=== PATIENT | female | born 1965 | race Caucasian/White ===

== ENCOUNTER 2018-06-09 12:47 | Emergency (ER) | payer MEDICAID ==
[~2018-06-09] VITALS: Ht 175.3 cm; Wt 119.0 kg
[2018-06-09 12:49] VITALS: BP 121/62
[2018-06-09] MEDS ORDERED: METH4TAB81 PO (13:38)
== END 2018-06-09 13:48 | disposition home or self-care (01) ==
LOC: ER 12:47
DX: M79.671 Pain in right foot (principal); M79.674 Pain in right toe(s); Z86.73 Personal history of transient ischemic attack (TIA), and cerebral infarction without residual deficits; Z85.89 Personal history of malignant neoplasm of other organs and systems; Z88.5 Allergy status to narcotic agent
CPT/HCPCS: 73630; 99284; L3260

== ENCOUNTER 2020-05-10 11:48 | Emergency (ER) | payer MEDICAID ==
[~2020-05-10] VITALS: Ht 175.3 cm; Wt 113.6 kg
[~2020-05-10 11:48] MED LIST: METH4TAB81 PO
[2020-05-10 12:08] VITALS: BP 134/91
[2020-05-10] MEDS ORDERED: CEPH500C5 PO (12:43)
== END 2020-05-10 13:24 | disposition home or self-care (01) ==
LOC: ER 11:48
DX: L03.032 Cellulitis of left toe (principal); M79.675 Pain in left toe(s); M79.89 Other specified soft tissue disorders; Z86.73 Personal history of transient ischemic attack (TIA), and cerebral infarction without residual deficits; Z85.41 Personal history of malignant neoplasm of cervix uteri; Z88.5 Allergy status to narcotic agent; Z79.2 Long term (current) use of antibiotics; Z79.899 Other long term (current) drug therapy
CPT/HCPCS: 73630; 99284

== ENCOUNTER 2021-12-08 09:39 | Emergency (ER) | payer MEDICARE, MEDICAID ==
[~2021-12-08] VITALS: Ht 175.3 cm; Wt 113.0 kg
[2021-12-08 09:58] VITALS: BP 128/81
[2021-12-08] MEDS ORDERED: DOXY100C76 PO (10:15)
[2021-12-08] MEDS ORDERED: NYSPWD TP (10:15)
[2021-12-08] MEDS ORDERED: TRAM50TA2 PO (10:17)
== END 2021-12-08 10:32 | disposition home or self-care (01) ==
LOC: ER 09:39
DX: L30.8 Other specified dermatitis (principal); L03.818 Cellulitis of other sites; Z86.73 Personal history of transient ischemic attack (TIA), and cerebral infarction without residual deficits; Z85.41 Personal history of malignant neoplasm of cervix uteri; Z88.5 Allergy status to narcotic agent; Z79.2 Long term (current) use of antibiotics; Z79.899 Other long term (current) drug therapy
CPT/HCPCS: 99283